=== PATIENT | male | born 1970 | race Caucasian/White ===

== ENCOUNTER 2017-11-25 03:42 | Emergency (ER) | payer SELFPAY ==
[2017-11-25 04:40] LABS: CHLORIDE,CL 104 mmol/L (98-107); SODIUM,NA 140 mmol/L (136-148)
[2017-11-25] MEDS ORDERED: Ketorolac 30 MG/ML SDV IM ONE (04:52)
--- NOTE | 2017-11-25 05:04 | EDM.PDOC ---
ED HPI GENERAL MEDICAL PROBLEM - General Chief Complaint: Upper Extremity Injury/Pain Stated Complaint: PAIN IN RIGHT HAND Time Seen by Provider: 11/25/17 04:59 - History of Present Illness INITIAL COMMENTS - FREE TEXT/NARRATIVE: HISTORY AND PHYSICAL: History of present illness: Patient's 47-year-old white male presents with a concern of right wrist and hand pain he denies trauma denies fever chills nausea vomiting denies history gout denies other concern. Review of systems: As per history of present illness and below otherwise all systems reviewed and negative. Past medical history: As per history of present illness and as reviewed below otherwise noncontributory. Surgical history: As per history of present illness and as reviewed below otherwise noncontributory. Social history: No reported history of drug or alcohol abuse. Family history: As per history of present illness and as reviewed below otherwise noncontributory. Physical exam: HEENT: Atraumatic, normocephalic, pupils reactive, negative for conjunctival pallor or scleral icterus, mucous membranes moist, throat clear, neck supple, nontender, trachea midline. Lungs: Clear to auscultation, breath sounds equal bilaterally, chest nontender. Heart: S1S2, regular, negative for clicks, rubs, or JVD. Abdomen: Soft, nondistended, nontender. Negative for masses or hepatosplenomegaly. Negative for costovertebral tenderness. Pelvis: Stable nontender. Genitourinary: Deferred. Rectal: Deferred. Extremities: Patient is some tenderness and swelling regions right wrist and hand seems to be quite tender diffusely to palpation there's no point tenderness CMS neurovascular exams unremarkable Neuro: Awake, alert, oriented. Cranial nerves II through XII unremarkable. Cerebellum unremarkable. Motor and sensory unremarkable throughout. Exam nonfocal. Diagnostics: CBC CMP uric acid 1 screening right wrist/hand x-ray Therapeutics: Toradol 30 mg IM Impression: 1 right wrist/hand pain rule out gout Definitive disposition and diagnosis as appropriate pending reevaluation and review of above. right hand Pain Score (Numeric/FACES): 10 - Related Data Allergies Allergy/AdvReac Type Severity Reaction Status Date / Time No Known Allergies Allergy Verified 11/25/17 03:47 Home Meds: Home Meds amLODIPine/atorvaSTATin [Amlodipine-Atorvast 5-20 MG] 1 each PO DAILY 01/21/14 [ History] glipiZIDE [Glipizide ER] 10 mg PO DAILY 01/21/14 [History] metFORMIN [Glucophage] 1,000 mg PO BID 01/21/14 [History] Past Medical History - Past Health History Medical/Surgical History: Denies Medical/Surgical History Cardiovascular History: Reports: Hypertension Endocrine/Metabolic History: Reports: Diabetes, Type II Social & Family History - Family History Family Medical History: Noncontributory - Tobacco Use Smoking Status *Q: Current Some Day Smoker Years of Tobacco use: 6 Packs/Tins Daily: 1 - Alcohol Use Days Per Week of Alcohol Use: 0 Number of Drinks Per Day: 3 Total Drinks Per Week: 0 - Recreational Drug Use Recreational Drug Use: Yes Drug Use in Last 12 Months: No Recreational Drug Type: Reports: Cocaine, Dextromethorphan (Cough Syrup), Marijuana/Hashish, Methamphetamine, Morphine, PCP (Hector Dust) Recreational Drug Use Frequency: Not Used In Over 1 Year Review of Systems - Review of Systems Review Of Systems: ROS reveals no pertinent complaints other than HPI. ED EXAM, GENERAL - Physical Exam Exam: See Below (See dictation) Course - Vital Signs Last Recorded V/S: Last Vital Signs Temp 36.4 C 11/25/17 04:48 Pulse 92 11/25/17 04:48 Resp 18 11/25/17 04:48 BP 156/97 H 11/25/17 04:48 Pulse Ox 95 11/25/17 04:48 - Orders/Labs/Meds Labs: Laboratory Tests 11/25/17 11/25/17 Range/Units 04:09 04:09 WBC 10.30 (4.0-11.0) K/uL RBC 4.46 L (4.50-5.90) M/uL Hgb 14.1 (13.0-17.0) g/dL Hct 40.4 (38.0-50.0) % MCV 90.6 (80.0-98.0) fL MCH 31.6 (27.0-32.0) pg MCHC 34.9 (31.0-37.0) g/dL RDW Std Deviation 40.6 (28.0-62.0) fl RDW Coeff of Cat 12 (11.0-15.0) % Plt Count 295 (150-400) K/uL MPV 8.60 (7.40-12.00) fL Neut % (Auto) 59.4 (48.0-80.0) % Lymph % (Auto) 27.6 (16.0-40.0) % Jennings % (Auto) 9.2 (0.0-15.0) % Eos % (Auto) 3.3 (0.0-7.0) % Baso % (Auto) 0.5 (0.0-1.5) % Neut # (Auto) 6.1 H (1.4-5.7) K/uL Lymph # (Auto) 2.8 H (0.6-2.4) K/uL Jennings # (Auto) 1.0 H (0.0-0.8) K/uL Eos # (Auto) 0.3 (0.0-0.7) K/uL Baso # (Auto) 0.1 (0.0-0.1) K/uL Nucleated RBC % 0.0 /100WBC Nucleated RBCs # 0 K/uL Sodium 140 (136-148) mmol/L Potassium 4.2 (3.5-5.1) mmol/L Chloride 104 (98-107) mmol/L Carbon Dioxide 25.9 (21.0-32.0) mmol/L BUN 15 (7.0-18.0) mg/dL Creatinine 0.9 (0.8-1.3) mg/dL Est Cr Clr Drug Dosing 86.37 mL/min Estimated GFR (MDRD) > 60.0 ml/min Glucose 223 H (74-106) mg/dL Uric Acid 4.3 (2.6-7.2) mg/dL Calcium 8.7 (8.5-10.1) mg/dL Total Bilirubin 0.3 (0.2-1.0) mg/dL AST 16 (15-37) IU/L ALT 38 (14-63) IU/L Alkaline Phosphatase 104 (46-116) U/L Total Protein 7.3 (6.4-8.2) g/dL Albumin 3.7 (3.4-5.0) g/dL Globulin 3.6 H (2.0-3.5) g/dL Albumin/Globulin Ratio 1.0 L (1.3-2.8) Meds: Medications Discontinued Medications Generic Name Dose Route Start Last Admin Trade Name Freq PRN Reason Stop Dose Admin Ketorolac Tromethamine 30 mg 11/25/17 04:52 Toradol IM 11/25/17 04:53 ONETIME ONE Departure - Departure Time of Disposition: 05:03 Disposition: Home, Self-Care 01 Condition: Good Clinical Impression: Wrist pain - Discharge Information Referrals: PCP,None [Primary Care Provider] - Additional Instructions: The following information is given to patients seen in the emergency department who are being discharged to home. This information is to outline your options for follow-up care. We provide all patients seen in our emergency department with a follow-up referral. The need for follow-up, as well as the timing and circumstances, are variable depending upon the specifics of your emergency department visit. If you don't have a primary care physician on staff, we will provide you with a referral. We always advise you to contact your personal physician following an emergency department visit to inform them of the circumstance of the visit and for follow-up with them and/or the need for any referrals to a consulting specialist. The emergency department will also refer you to a specialist when appropriate. This referral assures that you have the opportunity for followup care with a specialist. All of these measure are taken in an effort to provide you with optimal care, which includes your followup. Under all circumstances we always encourage you to contact your private physician who remains a resource for coordinating your care. When calling for followup care, please make the office aware that this follow-up is from your recent emergency room visit. If for any reason you are refused follow-up, please contact the [facility] emergency department at and asked to speak to the emergency department charge nurse. [facility] - [facility] Professional Building [address] [place] [address], [address] [place] [address] Indomethacin as prescribed continue current medications follow-up orthopedic clinic called schedule appointment return as needed as discussed
[2017-11-25 05:38] VITALS: BP 147/101
== END 2017-11-25 05:20 | disposition home or self-care (01) ==
LOC: MW.ED 03:42
DX: M25.531 Pain in right wrist (principal); M79.641 Pain in right hand; I10 Essential (primary) hypertension; E11.9 Type 2 diabetes mellitus without complications; F17.210 Nicotine dependence, cigarettes, uncomplicated; Z79.84 Long term (current) use of oral hypoglycemic drugs; Z79.899 Other long term (current) drug therapy
CPT/HCPCS: 36415; 80053; 84550; 85025; 87804; 96372; 99283; J1885

== ENCOUNTER 2018-11-13 06:00 | Emergency (ER) | payer SELFPAY ==
[2018-11-13] MEDS ORDERED: Albuterol/Ipratropium 3.0-0.5 MG/3 ML Neb Soln NEB ONE (06:15)
[2018-11-13] MEDS ORDERED: Albuterol/Ipratropium 3.0-0.5 MG/3 ML Neb Soln ONE (06:15)
--- NOTE | 2018-11-13 06:19 | EDM.PDOC ---
ED HPI GENERAL MEDICAL PROBLEM - General Chief Complaint: Respiratory Problem Stated Complaint: PERSISTENT COUGH Time Seen by Provider: 11/13/18 06:08 - History of Present Illness INITIAL COMMENTS - FREE TEXT/NARRATIVE: HISTORY AND PHYSICAL: History of present illness: The patient is a 48-year-old male with a history of diabetes and hypertension who does not have a local family doctor and did not get his influenza shot this year and presents with a one-week history of cough productive of phlegm and shortness of breath that started yesterday with some wheezing. He's had nasal drainage and a slight dry throat but not a sore throat and has no chest pain abdominal pain vomiting or diarrhea. The patient has been using Vicks to the chest only but no other [id number] cough prep. He does smoke cigarettes but on semiregular basis but he has done this for about 20 years.. He has no cardiac or pulmonary disease that he is aware of. Review of systems: As per history of present illness and below otherwise all systems reviewed and negative. Past medical history: As per history of present illness and as reviewed below otherwise noncontributory. Surgical history: As per history of present illness and as reviewed below otherwise noncontributory. Social history: No reported history of drug or alcohol abuse. Family history: As per history of present illness and as reviewed below otherwise noncontributory. Physical exam: General: Well-developed well-nourished overweight man who is nontoxic and has slight nasal quality to voice but is not breathless on my evaluation. Vital signs are noted by me HEENT: Atraumatic, normocephalic, pupils reactive, negative for conjunctival pallor or scleral icterus, mucous membranes moist, throat clear of exudates and there is no posterior oropharyngeal erythema no cervical adenopathy and no nuchal rigidity, neck supple, nontender, trachea midline. Lungs: Scattered expiratory wheezing right greater than left with no work or breathing or stridor breath sounds equal bilaterally, chest nontender. Heart: S1S2, regular rhythm slightly tachycardic rate of my evaluation no overt murmurs Abdomen: Soft, nondistended, nontender. NABS Pelvis: Deferred Genitourinary: Deferred. Rectal: Deferred. Extremities: Atraumatic, full range of motion. Neurovascular unremarkable. Neuro: Awake, alert, oriented. Cranial nerves II through XII unremarkable. Cerebellum unremarkable. Motor and sensory unremarkable throughout. Exam nonfocal. Diagnostics: Influenza chest x-ray Therapeutics: DuoNeb prednisone spacer and spacer teaching After the DuoNeb the patient has no wheezing and is still having a harsh cough. We will give him a spacer and spacer teaching and continue to follow his testing results. We'll plan on sending the patient home with an albuterol inhaler and prednisone as well as medications for his cough. Impression: Acute bronchitis with bronchospasm Definitive disposition and diagnosis as appropriate pending reevaluation and review of above. throat Pain Score (Numeric/FACES): 8 - Related Data Allergies Allergy/AdvReac Type Severity Reaction Status Date / Time No Known Allergies Allergy Verified 11/13/18 06:04 Home Meds: Home Meds glipiZIDE [Glipizide ER] 10 mg PO DAILY 01/21/14 [History] metFORMIN [Glucophage] 500 mg PO BID 01/21/14 [History] Past Medical History - Past Health History Medical/Surgical History: Denies Medical/Surgical History Cardiovascular History: Reports: Hypertension Endocrine/Metabolic History: Reports: Diabetes, Type II, Obesity/BMI 30+ Social & Family History - Family History Family Medical History: Noncontributory - Tobacco Use Smoking Status *Q: Current Every Day Smoker Years of Tobacco use: 20 Packs/Tins Daily: 1 - Recreational Drug Use Recreational Drug Use: No ED ROS GENERAL - Review of Systems Review Of Systems: ROS reveals no pertinent complaints other than HPI. ED EXAM, GENERAL - Physical Exam Exam: See Below (see dictation) Course - Vital Signs Last Recorded V/S: Last Vital Signs Temp 36.2 C 11/13/18 06:03 Pulse 107 H 11/13/18 06:03 Resp 18 11/13/18 06:03 BP 141/90 H 11/13/18 06:03 Pulse Ox 98 11/13/18 06:03 - Orders/Labs/Meds Orders: Active Orders 24 hr Category Date Time Status Communication Order [RC] STAT Care 11/13/18 06:41 Active Pulse Oximetry [RC] ASDIRECTED Care 11/13/18 06:15 Active RT Aerosol Therapy [RC] ASDIRECTED Care 11/13/18 06:15 Active Chest 2V [CR] Stat Exams 11/13/18 06:15 Taken Meds: Medications Discontinued Medications Generic Name Dose Route Start Last Admin Trade Name Freq PRN Reason Stop Dose Admin Albuterol/Ipratropium 3 ml 11/13/18 06:15 11/13/18 06:16 Duoneb 3.0-0.5 Mg/3 Ml NEB 11/13/18 06:16 3 ml ONETIME ONE Administration Albuterol/Ipratropium Confirm 11/13/18 06:15 11/13/18 06:21 Duoneb 3.0-0.5 Mg/3 Ml Administered 11/13/18 06:16 Not Given Dose 3 ml .ROUTE .STK-MED ONE Prednisone 20 mg 11/13/18 06:41 11/13/18 06:45 Prednisone PO 11/13/18 06:42 20 mg ONETIME ONE Administration Departure - Departure Time of Disposition: 07:10 Disposition: Home, Self-Care 01 Condition: Good Clinical Impression: Acute bronchitis with bronchospasm - Discharge Information Referrals: PCP,None [Primary Care Provider] - Forms: ED Department Discharge Additional Instructions: The following information is given to patients seen in the emergency department who are being discharged to home. This information is to outline your options for follow-up care. We provide all patients seen in our emergency department with a follow-up referral. The need for follow-up, as well as the timing and circumstances, are variable depending upon the specifics of your emergency department visit. If you don't have a primary care physician on staff, we will provide you with a referral. We always advise you to contact your personal physician following an emergency department visit to inform them of the circumstance of the visit and for follow-up with them and/or the need for any referrals to a consulting specialist. The emergency department will also refer you to a specialist when appropriate. This referral assures that you have the opportunity for followup care with a specialist. All of these measure are taken in an effort to provide you with optimal care, which includes your followup. Under all circumstances we always encourage you to contact your private physician who remains a resource for coordinating your care. When calling for followup care, please make the office aware that this follow-up is from your recent emergency room visit. If for any reason you are refused follow-up, please contact the [facility] emergency department at and ask to speak to the emergency department charge nurse. [facility] Primary care- Internal Medicine and Family [place] [id number] [place] [id number] Push hydration and reduce and/or quit tobacco use. Please call and schedule a follow-up appointment with one of our providers in the clinic this week for reevaluation and further care. Use all medications as prescribed including the albuterol inhaler with spacer you have been given today, prednisone and cough medicine as needed. You may add any [id number] preps for cough and cold symptoms that you choose. Return to ER as needed and as discussed - My Orders Last 24 Hours: My Active Orders 11/13/18 06:15 Pulse Oximetry [RC] ASDIRECTED RT Aerosol Therapy [RC] ASDIRECTED Chest 2V [CR] Stat 11/13/18 06:41 Communication Order [RC] STAT - Assessment/Plan Last 24 Hours: My Active Orders 11/13/18 06:15 Pulse Oximetry [RC] ASDIRECTED RT Aerosol Therapy [RC] ASDIRECTED Chest 2V [CR] Stat 11/13/18 06:41 Communication Order [RC] STAT
[2018-11-13] MEDS ORDERED: predniSONE 20 MG Tab PO ONE (06:41)
--- NOTE | 2018-11-13 07:10 | CR ---
INDICATION: Shortness of breath. TECHNIQUE: Two-view. FINDINGS: Heart size is within normal limits. The lungs are free of infiltrate. There is no pulmonary edema. No pleural fluid is seen. Mildly prominent pericardial fat pad on the left is noted which is felt to be a normal variant. IMPRESSION: Clear chest. Dictated by Deven Alfred MD @ 11/13/2018 7:09:17 AM Dictated by: Deven Alfred MD @ 11/13/2018 07:09:26 (Electronically Signed)
[2018-11-13 07:26] VITALS: BP 136/86
== END 2018-11-13 07:25 | disposition home or self-care (01) ==
LOC: MW.ED 06:00
DX: J20.9 Acute bronchitis, unspecified (principal); F17.210 Nicotine dependence, cigarettes, uncomplicated; I10 Essential (primary) hypertension; E11.9 Type 2 diabetes mellitus without complications; Z79.84 Long term (current) use of oral hypoglycemic drugs
CPT/HCPCS: 71046; 87804; 94640; 99284; A9270; 99283; J7620-GY

== ENCOUNTER 2018-12-18 08:39 | Emergency (ER) | payer OTHER ==
--- NOTE | 2018-12-18 10:08 | EDM.PDOC ---
ED HPI GENERAL MEDICAL PROBLEM - General Chief Complaint: Skin Complaint Stated Complaint: BLISTER ON BOTTOM Time Seen by Provider: 12/18/18 10:06 Source of Information: Reports: Patient History Limitations: Reports: No Limitations - History of Present Illness INITIAL COMMENTS - FREE TEXT/NARRATIVE: HISTORY AND PHYSICAL: History of present illness: Patient is a 48-year-old male presents to the ED today with concern of a boil on his buttocks x 4 days. Patient states he's had these in the past and has had to come in and get them drained. Patient has not tried to drain them himself and has not tried to manipulate the area. Patient states the pain is worse when he presses on the area. He rates his discomfort a 6 out of 10 and worse when he is sitting. He has been taking Tylenol and ibuprofen at home for pain and discomfort. Patient has tried applying warm compresses to see if this area would open up. Patient denies fever, chills, chest pain, shortness of breath, or cough. Denies headache, neck stiff ness, change in vision, syncope, or near syncope. Denies nausea, vomiting, abdominal pain, diarrhea, constipation, or dysuria. Has not noted any blood in urine or stool. Patient has been eating and drinking appropriately. Patient has a history of diabetes but denies any other health history. Review of systems: As per history of present illness and below otherwise all systems reviewed and negative. Past medical history: As per history of present illness and as reviewed below otherwise noncontributory. Surgical history: As per history of present illness and as reviewed below otherwise noncontributory. Social history: See social history for further information Family history: As per history of present illness and as reviewed below otherwise noncontributory. Physical exam: General: Patient is alert, oriented, and in no acute distress. Patient sitting comfortably on exam table. HEENT: Atraumatic, normocephalic, pupils equal and reactive bilaterally, negative for conjunctival pallor or scleral icterus, mucous membranes moist, TMs normal bilaterally, throat clear, neck supple, nontender, trachea midline. No drooling or trismus noted. No meningeal signs. No hot potato voice noted. Lungs: Clear to auscultation, breath sounds equal bilaterally, chest nontender. Heart: S1S2, regular rate and rhythm without overt murmur Abdomen: Soft, nondistended, nontender. Negative for masses or hepatosplenomegaly. Negative for costovertebral tenderness. Pelvis: Stable nontender. Genitourinary: See skin. Rectal: Deferred. Skin: There is a 3cm furuncle on the right intergluteal cleft. The area does not tract into the rectum or scrotum. There is a 1 cm area of erythema around the area of the foot and ankle. Extremities: Atraumatic, negative for cords or calf pain. Neurovascular unremarkable. Neuro: Awake, alert, oriented. Cranial nerves II through XII unremarkable. Cerebellum unremarkable. Motor and sensory unremarkable throughout. Exam nonfocal. Notes: Patient does not express any fevers at home and states he has felt per himself. He does not have an elevated white count today and as reviewed by me. Did offer imaging to patient today but he declines at this time. Incision and drainage today in the ER with a fair amount of purulent drainage. Discussed the importance for follow-up with a primary care provider. Supportive care measures were reviewed and discussed. Voices understanding and is agreeable to plan of care. Denies any further questions or concerns at this time. Diagnostics: CBC,CMP Therapeutics: Incision and Drainage, Toradol, Rocephin Prescription: Bactrim DS Impression: Buttocks Furuncle Plan: 1. Take medication as prescribed. You can alternate Tylenol and ibuprofen as directed for pain and discomfort. 2. Follow-up with your primary care provider as discussed. 3. Return to the ED as needed and as discussed. Definitive disposition and diagnosis as appropriate pending reevaluation and review of above. Left Buttock Pain Score (Numeric/FACES): 5 - Related Data Allergies Allergy/AdvReac Type Severity Reaction Status Date / Time No Known Allergies Allergy Verified 12/18/18 09:10 Home Meds: Home Meds glipiZIDE [Glipizide ER] 10 mg PO DAILY 01/21/14 [History] metFORMIN [Glucophage] 500 mg PO BID 01/21/14 [History] Sulfamethoxazole/Trimethoprim [Bactrim Ds Tablet] 1 each PO BID 7 Days #14 tablet 12/18/18 [Rx] Past Medical History - Past Health History Medical/Surgical History: Denies Medical/Surgical History Cardiovascular History: Reports: Hypertension Endocrine/Metabolic History: Reports: Diabetes, Type II, Obesity/BMI 30+ Social & Family History - Family History Family Medical History: Noncontributory - Tobacco Use Smoking Status *Q: Current Some Day Smoker Years of Tobacco use: 30 Packs/Tins Daily: 0.1 - Recreational Drug Use Recreational Drug Use: No ED ROS GENERAL - Review of Systems Review Of Systems: ROS reveals no pertinent complaints other than HPI. ED EXAM, SKIN/RASH Exam: See Below (See dictation) ED SKIN PROCEDURES - I&D Site: buttocks Skin Prep: Chlorhexidine (Hibiciens), Providone-Iodine (Betadine) Area Incised With: Needle Drainage: Purulent, Moderate Amount Probed to Break Up Loculations: No Packed With: None Sterile Dressinx4(s) Complications: No Course - Vital Signs Last Recorded V/S: Last Vital Signs Temp 36.2 C 12/18/18 09:00 Pulse 114 H 12/18/18 09:00 Resp 18 12/18/18 09:00 BP 152/88 H 12/18/18 09:00 Pulse Ox 96 12/18/18 09:00 - Orders/Labs/Meds Orders: Active Orders 24 hr Category Date Time Status CMP [COMPREHENSIVE METABOLIC PN,CMP] [CHEM] Stat Lab 12/18/18 10:47 Received Labs: Laboratory Tests 12/18/18 Range/Units 10:47 WBC 10.07 (4.0-11.0) K/uL RBC 4.45 L (4.50-5.90) M/uL Hgb 13.6 (13.0-17.0) g/dL Hct 40.5 (38.0-50.0) % MCV 91.0 (80.0-98.0) fL MCH 30.6 (27.0-32.0) pg MCHC 33.6 (31.0-37.0) g/dL RDW Std Deviation 42.5 (28.0-62.0) fl RDW Coeff of Cat 13 (11.0-15.0) % Plt Count 300 (150-400) K/uL MPV 8.60 (7.40-12.00) fL Neut % (Auto) 69.9 (48.0-80.0) % Lymph % (Auto) 19.4 (16.0-40.0) % [place] % (Auto) 7.8 (0.0-15.0) % Eos % (Auto) 2.5 (0.0-7.0) % Baso % (Auto) 0.4 (0.0-1.5) % Neut # (Auto) 7.0 H (1.4-5.7) K/uL Lymph # (Auto) 2.0 (0.6-2.4) K/uL [place] # (Auto) 0.8 (0.0-0.8) K/uL Eos # (Auto) 0.3 (0.0-0.7) K/uL Baso # (Auto) 0.0 (0.0-0.1) K/uL Nucleated RBC % 0.0 /100WBC Nucleated RBCs # 0 K/uL Meds: Medications Discontinued Medications Generic Name Dose Route Start Last Admin Trade Name Freq PRN Reason Stop Dose Admin Ceftriaxone Sodium 1 gm/ 4 mls @ 4 mls/sec 12/18/18 10:19 12/18/18 11:05 Lidocaine HCl IM 12/18/18 10:20 4 mls/sec ONETIME ONE Administration Ketorolac Tromethamine 60 mg 12/18/18 10:19 12/18/18 11:05 Toradol IM 12/18/18 10:20 60 mg ONETIME ONE Administration Departure - Departure Time of Disposition: 11:25 Disposition: Home, Self-Care 01 Clinical Impression: Furuncle of buttock - Discharge Information Prescriptions: Sulfamethoxazole/Trimethoprim [Bactrim Ds Tablet] 1 each PO BID 7 Days #14 tablet Instructions: Skin Abscess Referrals: PCP,None [Primary Care Provider] - Forms: ED Department Discharge Additional Instructions: The following information is given to patients seen in the emergency department who are being discharged to home. This information is to outline your options for follow-up care. We provide all patients seen in our emergency department with a follow-up referral. The need for follow-up, as well as the timing and circumstances, are variable depending upon the specifics of your emergency department visit. If you don't have a primary care physician on staff, we will provide you with a referral. We always advise you to contact your personal physician following an emergency department visit to inform them of the circumstance of the visit and for follow-up with them and/or the need for any referrals to a consulting specialist. The emergency department will also refer you to a specialist when appropriate. This referral assures that you have the opportunity for follow-up care with a specialist. All of these measure are taken in an effort to provide you with optimal care, which includes your follow-up. Under all circumstances we always encourage you to contact your private physician who remains a resource for coordinating your care. When calling for follow-up care, please make the office aware that this follow-up is from your recent emergency room visit. If for any reason you are refused follow-up, please contact the [facility] Emergency Department at and asked to speak to the emergency department charge nurse. [facility] [address] [place] [id number] [facility] [address] [place] [id number] 1. Take medication as prescribed. You can alternate Tylenol and ibuprofen as directed for pain and discomfort. 2. Follow-up with your primary care provider as discussed. 3. Return to the ED as needed and as discussed. - My Orders Last 24 Hours: My Active Orders 12/18/18 10:47 CMP [COMPREHENSIVE METABOLIC PN,CMP] [CHEM] Stat - Assessment/Plan Last 24 Hours: My Active Orders 12/18/18 10:47 CMP [COMPREHENSIVE METABOLIC PN,CMP] [CHEM] Stat
[2018-12-18] MEDS ORDERED: cefTRIAXone 1 GM in Lidocaine 1% 4 ML IM ONE (10:19)
[2018-12-18] MEDS ORDERED: Ketorolac 60 MG/2 ML SDV IM ONE (10:19)
[2018-12-18 11:28] LABS: CHLORIDE,CL 102 mmol/L (98-107); SODIUM,NA 139 mmol/L (136-148)
[2018-12-18 11:33] VITALS: BP 136/86
== END 2018-12-18 11:34 | disposition home or self-care (01) ==
LOC: MW.ED 08:39
DX: L02.32 Furuncle of buttock (principal); E66.9 Obesity, unspecified
CPT/HCPCS: 36415; 80053; 85025; 96372; 99283; J0696; J1885; J2001

== ENCOUNTER 2019-02-27 14:59 | Emergency (ER) | payer OTHER ==
[2019-02-27 15:12] VITALS: BP 158/91
[2019-02-27 15:57] LABS: CHLORIDE,CL 103 mmol/L (98-107); SODIUM,NA 139 mmol/L (136-148)
--- NOTE | 2019-02-27 16:11 | EDM.PDOC ---
ED HPI GENERAL MEDICAL PROBLEM - General Chief Complaint: Upper Extremity Injury/Pain Stated Complaint: LT ARM SWOLLEN Time Seen by Provider: 02/27/19 15:01 Source of Information: Reports: Patient History Limitations: Reports: No Limitations - History of Present Illness INITIAL COMMENTS - FREE TEXT/NARRATIVE: HISTORY AND PHYSICAL: History of present illness: Patient is a 48-year-old male presents to the ED today with concern of left wrist pain and swelling since this morning. Patient states he does work a demanding job but does not remember ever injuring his left wrist. Patient states when he woke up this morning it was swollen, red, and painful with movement. Patient states he does have a history of cellulitis in the past which presented similarly as today. Patient states he has a history of type 2 diabetes but denies any other health history. Patient denies any other symptoms or concerns at this time. Patient denies fever, chills, chest pain, shortness of breath, or cough. Denies headache, neck stiff ness, change in vision, syncope, or near syncope. Denies nausea, vomiting, abdominal pain, diarrhea, constipation, or dysuria. Has not noted any blood in urine or stool. Patient has been eating and drinking appropriately. Review of systems: As per history of present illness and below otherwise all systems reviewed and negative. Past medical history: As per history of present illness and as reviewed below otherwise noncontributory. Surgical history: As per history of present illness and as reviewed below otherwise noncontributory. Social history: See social history for further information Family history: As per history of present illness and as reviewed below otherwise noncontributory. Physical exam: General: Patient is alert, oriented, and in no acute distress. Patient sitting comfortably on exam table. HEENT: Atraumatic, normocephalic, pupils equal and reactive bilaterally, negative for conjunctival pallor or scleral icterus, mucous membranes moist, TMs normal bilaterally, throat clear, neck supple, nontender, trachea midline. No drooling or trismus noted. No meningeal signs. No hot potato voice noted. Lungs: Clear to auscultation, breath sounds equal bilaterally, chest nontender. Heart: S1S2, regular rate and rhythm without overt murmur Abdomen: Soft, nondistended, nontender. Negative for masses or hepatosplenomegaly. Negative for costovertebral tenderness. Pelvis: Stable nontender. Genitourinary: Deferred. Rectal: Deferred. Skin: Intact, warm, dry. No lesions or rashes noted. Extremities: negative for cords or calf pain. Neurovascular unremarkable. Patient does have full range of motion of the left wrist digits elbow and shoulder. The left wrist is slightly more edematous than the right with questionable erythema due to patient's skin tone with slight increase in warmth. Pain with palpation of the left hand/wrist. Radial pulse grossly intact with capillary refill <2 seconds. Neuro: Awake, alert, oriented. Cranial nerves II through XII unremarkable. Cerebellum unremarkable. Motor and sensory unremarkable throughout. Exam nonfocal. Notes: Dr. Alvarez verbally involved in patient care. Voices understanding and is agreeable to plan of care. Denies any further questions or concerns at this time. Diagnostics: wrist XR, hand XR, CBC, CMP, Uric acid Therapeutics: Splint Prescription: Keflex Impression: Cellulitis of left hand Plan: 1. Rest, ice, elevate the affected extremity. You can apply ice 15 minutes on, 15 minutes off. 2. Tylenol and/or Ibuprofen as directed for pain management or discomfort. Take medication as prescribed. 3. Follow up with the primary care provider as discussed. Return to the ED as needed and as discussed. Definitive disposition and diagnosis as appropriate pending reevaluation and review of above. left wrist Pain Score (Numeric/FACES): 8 - Related Data Allergies Allergy/AdvReac Type Severity Reaction Status Date / Time No Known Allergies Allergy Verified 02/27/19 15:09 Home Meds: Home Meds glipiZIDE [Glipizide ER] 10 mg PO DAILY 01/21/14 [History] metFORMIN [Glucophage] 500 mg PO BID 01/21/14 [History] Past Medical History - Past Health History Medical/Surgical History: Denies Medical/Surgical History Cardiovascular History: Reports: Hypertension Endocrine/Metabolic History: Reports: Diabetes, Type II, Obesity/BMI 30+ - Infectious Disease History Infectious Disease History: Reports: None Social & Family History - Family History Family Medical History: Noncontributory - Tobacco Use Smoking Status *Q: Current Every Day Smoker Years of Tobacco use: 7 Packs/Tins Daily: 1 - Recreational Drug Use Recreational Drug Use: No Review of Systems - Review of Systems Review Of Systems: ROS reveals no pertinent complaints other than HPI. ED EXAM, GENERAL - Physical Exam Exam: See Below (See dictation) Course - Vital Signs Last Recorded V/S: Last Vital Signs Temp 36.8 C 02/27/19 15:10 Pulse 92 02/27/19 15:10 Resp 18 02/27/19 15:10 BP 158/91 H 02/27/19 15:10 Pulse Ox 97 02/27/19 15:10 - Orders/Labs/Meds Labs: Laboratory Tests 02/27/19 02/27/19 Range/Units 15:28 15:28 WBC 9.84 (4.0-11.0) K/uL RBC 4.03 L (4.50-5.90) M/uL Hgb 12.4 L (13.0-17.0) g/dL Hct 37.0 L (38.0-50.0) % MCV 91.8 (80.0-98.0) fL MCH 30.8 (27.0-32.0) pg MCHC 33.5 (31.0-37.0) g/dL RDW Std Deviation 42.3 (28.0-62.0) fl RDW Coeff of Cat 13 (11.0-15.0) % Plt Count 283 (150-400) K/uL MPV 8.60 (7.40-12.00) fL Neut % (Auto) 67.1 (48.0-80.0) % Lymph % (Auto) 15.3 L (16.0-40.0) % [place] % (Auto) 10.3 (0.0-15.0) % Eos % (Auto) 7.0 (0.0-7.0) % Baso % (Auto) 0.3 (0.0-1.5) % Neut # (Auto) 6.6 H (1.4-5.7) K/uL Lymph # (Auto) 1.5 (0.6-2.4) K/uL [place] # (Auto) 1.0 H (0.0-0.8) K/uL Eos # (Auto) 0.7 (0.0-0.7) K/uL Baso # (Auto) 0.0 (0.0-0.1) K/uL Nucleated RBC % 0.0 /100WBC Nucleated RBCs # 0 K/uL Sodium 139 (136-148) mmol/L Potassium 3.9 (3.5-5.1) mmol/L Chloride 103 (98-107) mmol/L Carbon Dioxide 26.2 (21.0-32.0) mmol/L BUN 13 (7.0-18.0) mg/dL Creatinine 0.9 (0.8-1.3) mg/dL Est Cr Clr Drug Dosing 85.42 mL/min Estimated GFR (MDRD) > 60.0 ml/min Glucose 235 H (74-106) mg/dL Uric Acid 4.1 (2.6-7.2) mg/dL Calcium 8.3 L (8.5-10.1) mg/dL Total Bilirubin 0.4 (0.2-1.0) mg/dL AST 11 L (15-37) IU/L ALT 30 (14-63) IU/L Alkaline Phosphatase 117 H (46-116) U/L Total Protein 7.3 (6.4-8.2) g/dL Albumin 3.6 (3.4-5.0) g/dL Globulin 3.7 (2.6-4.0) g/dL Albumin/Globulin Ratio 1.0 (0.9-1.6) Departure - Departure Time of Disposition: 16:20 Disposition: Home, Self-Care 01 Clinical Impression: Cellulitis Qualifiers: Site of cellulitis: extremity Site of cellulitis of extremity: upper extremity Laterality: left Qualified Code(s): L03.114 - Cellulitis of left upper limb - Discharge Information Referrals: PCP,None [Primary Care Provider] - Forms: ED Department Discharge Additional Instructions: The following information is given to patients seen in the emergency department who are being discharged to home. This information is to outline your options for follow-up care. We provide all patients seen in our emergency department with a follow-up referral. The need for follow-up, as well as the timing and circumstances, are variable depending upon the specifics of your emergency department visit. If you don't have a primary care physician on staff, we will provide you with a referral. We always advise you to contact your personal physician following an emergency department visit to inform them of the circumstance of the visit and for follow-up with them and/or the need for any referrals to a consulting specialist. The emergency department will also refer you to a specialist when appropriate. This referral assures that you have the opportunity for follow-up care with a specialist. All of these measure are taken in an effort to provide you with optimal care, which includes your follow-up. Under all circumstances we always encourage you to contact your private physician who remains a resource for coordinating your care. When calling for follow-up care, please make the office aware that this follow-up is from your recent emergency room visit. If for any reason you are refused follow-up, please contact the [facility] Emergency Department at and asked to speak to the emergency department charge nurse. [facility] [address] [place] [address] [id number] [address] 1. Rest, ice, elevate the affected extremity. You can apply ice 15 minutes on, 15 minutes off. 2. Tylenol and/or Ibuprofen as directed for pain management or discomfort. Take medication as prescribed. 3. Follow up with the primary care provider as discussed. Return to the ED as needed and as discussed.
--- NOTE | 2019-02-27 16:19 | CR ---
INDICATION: Wrist pain, swelling TECHNIQUE: X-ray left wrist, three views COMPARISON: The there is mild soft tissue swelling about the wrist. Vascular calcification is seen in the soft tissue. FINDINGS: There are degenerative changes of the radiocarpal joint including joint space narrowing and subchondral sclerosis. Degenerative changes are also present in the distal radioulnar joint. The alignment is otherwise normal. Negative for acute fracture or dislocation. Negative for radiopaque foreign body. IMPRESSION: 1. Soft tissue swelling without an identifiable acute fracture or dislocation. If there is persistent pain in the setting of trauma consider follow-up radiographs in 7-10 days. 2. Mild degenerative changes of the wrist. Dictated by Ghada Pepe MD @ Feb 27 2019 4:12PM Signed by Dr. Ghada Pepe @ Feb 27 2019 4:17PM
--- NOTE | 2019-02-27 16:19 | CR ---
TECHNIQUE: Three views of the left hand. INDICATION: Swelling and pain. FINDINGS: No acute left hand fracture or dislocation. Moderate scattered IP joint and wrist degenerative change. Otherwise normal. Dictated by Yanick Gorman MD @ 02/27/2019 4:18:18 PM Dictated by: Yanick Gorman MD @ 02/27/2019 16:18:31 (Electronically Signed)
== END 2019-02-27 16:28 | disposition home or self-care (01) ==
LOC: MW.ED 14:59
DX: L03.114 Cellulitis of left upper limb (principal); E11.9 Type 2 diabetes mellitus without complications; I10 Essential (primary) hypertension; E66.9 Obesity, unspecified; F17.210 Nicotine dependence, cigarettes, uncomplicated; Z79.84 Long term (current) use of oral hypoglycemic drugs; Z68.41 Body mass index [BMI] 40.0-44.9, adult
CPT/HCPCS: 36415; 73110-26-LT; 73110-LT; 73130-26-LT; 73130-LT; 80053; 84550; 85025; 99283; 99283-25